=== PATIENT | female | born 1940 | race Caucasian/White ===

== ENCOUNTER 2016-08-09 08:24 | Emergency (ER) | payer MEDICARE ==
--- NOTE | 2016-08-09 09:03 | UC ---
Throat Pain/Nasal Maxx HPI - HPI Summary HPI Summary: [address] AND COUGH. ALSO HAS SHARP RIGHT SIDED EAR PAIN AND SHARP INTERMITTENT DICKSON PAIN. NO FEVER OR NAUSEA.. - History of Current Complaint Chief Complaint: UCGeneralIllness Stated Complaint: SORE THROAT EAR PAIN Time Seen by Provider: 08/09/16 08:52 Hx Obtained From: Patient Onset/Duration: Gradual Onset, Lasting Days, Still Present Severity: Moderate Pain Intensity: 8 Pain Scale Used: 0-10 Numeric Cough: Nonproductive - Allergies/Home Medications Allergies/Adverse Reactions: Allergies Allergy/AdvReac Type Severity Reaction Status Date / Time Amoxicillin [From Augmentin] Allergy Swelling Verified 08/09/16 08:38 Ampicillin Allergy Swelling Verified 08/09/16 08:37 Clavulanic Acid Allergy Swelling Verified 08/09/16 08:37 [From Augmentin] Denosumab [From Prolia] Allergy Swelling Verified 08/09/16 08:37 Lactose Intolerance (GI) Allergy Swelling Verified 08/09/16 08:37 Levofloxacin [From Levaquin] Allergy Swelling Verified 08/09/16 08:37 Loratadine [From Claritin-D] Allergy Swelling Verified 08/09/16 08:37 Metoclopramide [From Reglan] Allergy Swelling Verified 08/09/16 08:37 Mouse Protein [From Prolia] Allergy Swelling Verified 08/09/16 08:37 Pseudoephedrine Allergy Swelling Verified 08/09/16 08:37 [From Claritin-D] Rosuvastatin [From Crestor] Allergy Swelling Verified 08/09/16 08:37 PMH/Surg Hx/FS Hx/Imm Hx Cardiovascular History: Hypertension - Surgical History Surgical History: Yes Surgery Procedure, Year, and Place: stomach surgery - Family History Known Family History: Positive: Hypertension, Diabetes - Social History Alcohol Use: None Substance Use Type: None Smoking Status (MU): Never Smoked Tobacco Review of Systems Constitutional: Negative ENT: Sore Throat, Ear Ache Respiratory: Cough Cardiovascular: Negative Gastrointestinal: Negative Neurological: Headache All Other Systems Reviewed And Are Negative: Yes Physical Exam Triage Information Reviewed: Yes Appearance: Well-Appearing, No Pain Distress, Well-Nourished Vital Signs: Initial Vital Signs Temp 98.8 F 08/09/16 08:33 Pulse 75 08/09/16 08:33 Resp 18 08/09/16 08:33 BP 130/56 08/09/16 08:33 Pulse Ox 100 08/09/16 08:33 Vital Signs Reviewed: Yes Eyes: Positive: Conjunctiva Clear ENT: Positive: Hearing grossly normal, Pharynx normal, TMs normal. Negative: Muffled/hoarse voice Neck: Positive: Supple, Nontender, No Lymphadenopathy Respiratory Exam: Normal Cardiovascular Exam: Normal Abdomen Description: Positive: Soft Musculoskeletal: Positive: No Edema Neurological: Positive: Alert Psychological: Positive: Age Appropriate Behavior Skin: Negative: rashes Throat Pain/Nasal Course/Dx - Differential Dx/Diagnosis Provider Diagnoses: ACUTE URI/PHARYNGITIS Discharge - Discharge Plan Condition: Stable Disposition: HOME Prescriptions: Amoxicillin CAP* [Amoxicillin 500 MG CAP*] 1,000 mg PO Q12H #28 cap Patient Education Materials: Upper Respiratory Infection (ED) Referrals: Vandana Morin MD [Primary Care Provider] - If Needed Additional Instructions: ACUTE UPPER RESPIRATORY INFECTION The common cold is a benign self-limited syndrome representing a group of diseases caused by members of several families of viruses. It is the most frequent acute illness in the [place] and throughout the industrialized world. The term "common cold" refers to a mild upper respiratory viral infection involving, to variable degrees, nasal congestion and discharge ( rhinorrhea), sneezing, sore throat, cough, low-grade fever, headache, and malaise. Symptomatic therapy remains the mainstay of common cold treatment. In the absence of convincing evidence of a secondary bacterial infection, antibiotics are not effective in the treatment of the common cold and should not be prescribed. Be advised that the usual course and duration of illness is up to one and a half weeks for patients with a cold, but can last slightly longer; symptoms usually persist longer in smokers.
== END 2016-08-09 09:09 | disposition home or self-care (01) ==
LOC: UCEAST 08:24
DX: J06.9 Acute upper respiratory infection, unspecified (principal); J02.9 Acute pharyngitis, unspecified; I10 Essential (primary) hypertension
CPT/HCPCS: 99212; G0463

== ENCOUNTER 2017-04-24 17:27 | Emergency (ER) | payer MEDICARE ==
[2017-04-24] MEDS ORDERED: NS 0.9% 1000 ML* 1,000 ML IV ONE (19:15)
[2017-04-24] MEDS ORDERED: Dexamethasone IV* 4 MG/ML 1 ML (4 MG) IV SLOW PU ONE (19:15)
[2017-04-24] MEDS ORDERED: Famotidine TAB* 20 MG PO ONE (19:15)
[2017-04-24 19:46] LABS: ABS Basophils 0.1 10^3/ul (0-0.2); ABS Eosinophils 0.1 10^3/ul (0-0.6); ABS Lymphocytes 2.3 10^3/ul (1.0-4.8); ABS Monocytes 0.7 10^3/ul (0-0.8); ABS Neutrophils 3.6 10^3/ul (1.5-7.7); ABS Nucleated RBC 0 10^3/ul; Eosinophil % 1.9 % (0-6); Hematocrit 41 % (35-47); Hemoglobin 13.9 g/dl (12.0-16.0); Lymphocyte % 33.3 % (25-47); Mean Corpuscular HGB Conc 34 g/dl (31-36); Mean Corpuscular Hemoglobin 31 pg (27-31); Mean Corpuscular Volume 92 fL (80-97); Mean Platelet Volume 9 um3 (7.4-10.4); Nucleated Red Blood Cells % 0.1; Platelet Count 284 10^3/ul (150-450); Red Blood Count 4.46 10^6/ul (4.0-5.4); Red Cell Distribution Width 14 % (10.5-15); White Blood Count 6.8 10^3/ul (3.5-10.8)
[2017-04-24 20:17] LABS: Urine Appearance Clear; Urine Blood Negative (Negative); Urine Color Straw; Urine Ketones Negative (Negative); Urine Protein Negative (Negative); Urine Specific Gravity 1.003 (1.010-1.030); Urine Urobilinogen Negative (Negative)
--- NOTE | 2017-04-24 20:22 | ED ---
Rashmi Donohue Thomas, scribed for Anita Thomas MD on 04/24/17 at 1859 . Allergic Reaction/Systemic - HPI Summary HPI Summary: The patient is a 76 year old female who was given one dose of Tamiflu in Dr. Garcia office today at 12:00. After taking the medication, she has right chest tightness, right sided-facial swelling, and lip swelling. She notes some throat swelling as well. The patient rates her pain 8/10. The patient denies chest pain, wheezing or SOB. Pt did not take any meds prior to coming to the ED other than the Tamiflu. - History of Current Complaint Chief Complaint: EDAllergicReaction Hx Obtained From: Patient, Family/Immigration Case Manager - Onset/Duration: Sudden Onset, Started hours ago - patient given Tamiflu today at 12:00, Still Present Timing: Constant Severity Initially: Moderate Severity Currently: Moderate Pain Intensity: 8 Pain Scale Used: 0-10 Numeric Location: Discrete @ - face, neck, throat Character: Swelling Aggravating Factor(s): Other - Tamiflu Alleviating Factor(s): Nothing Associated Signs And Symptoms: Positive: Throat Tightening, Other: - Facial swelling, chest tightness, right-sided facial swelling, lip swelling - Related Hx Possible Reaction To: Medications - Tamiflu - Allergies/Home Medications Allergies/Adverse Reactions: Allergies Allergy/AdvReac Type Severity Reaction Status Date / Time MS Amoxicillin Allergy Swelling Verified 08/09/16 08:38 [From Augmentin] MS Ampicillin [Ampicillin] Allergy Swelling Verified 08/09/16 08:37 MS Clavulanic Acid Allergy Swelling Verified 08/09/16 08:37 [From Augmentin] MS Denosumab [From Prolia] Allergy Swelling Verified 08/09/16 08:37 MS Lactose Intolerance (GI) Allergy Swelling Verified 08/09/16 08:37 [Lactose Intolerance (GI)] MS Levofloxacin Allergy Swelling Verified 08/09/16 08:37 [From Levaquin] MS Loratadine Allergy Swelling Verified 08/09/16 08:37 [From Claritin-D] MS Metoclopramide Allergy Swelling Verified 08/09/16 08:37 [From Reglan] MS Mouse Protein Allergy Swelling Verified 08/09/16 08:37 [From Prolia] MS Pseudoephedrine Allergy Swelling Verified 08/09/16 08:37 [From Claritin-D] MS Rosuvastatin Allergy Swelling Verified 08/09/16 08:37 [From Crestor] PMH/Surg Hx/FS Hx/Imm Hx Previously Healthy: No Endocrine/Hematology History: Denies: Hx Diabetes Cardiovascular History: Reports: Hx Hypertension Denies: Hx Hypercholesterolemia, Hx Myocardial Infarction GI History: Reports: Hx Ulcer, Other GI Disorders - Hx gastroparesis Neurological History: Reports: Hx Seizures - Surgical History Surgery Procedure, Year, and Place: stomach surgery Infectious Disease History: No Infectious Disease History: Denies: Traveled Outside the [place] in Last 30 Days - Family History Known Family History: Positive: Hypertension, Diabetes - Social History Lives: With Family Alcohol Use: None Hx Substance Use: No Substance Use Type: Reports: None Hx Tobacco Use: No Smoking Status (MU): Never Smoked Tobacco Review of Systems Negative: Fever ENT: Other - hoarse voice (not new since Tamiflu) Positive: Other - Right-sided facial swelling, lip swelling, throat swelling Positive: Other - Chest tightness. Negative: Chest Pain Negative: Shortness Of Breath Negative: Abdominal Pain, Nausea Negative: Rash, Other - hives Neurological: Negative Psychological: Normal All Other Systems Reviewed And Are Negative: Yes Physical Exam - Summary Physical Exam Summary: Appearance: well-appearing, no pain distress, elderly, no resp distress. Speaks full sentences Skin: Warm, color reflects adequate perfusion. There are no rashes noted. Head: There is redness of the face. Eyes: Conjunctiva clear ENT: There is redness of the face. There is swelling of the lower lip. There is loss of lip creases. She has a hoarse voice (not new). Airway is widely patent , no redness or swelling of the post pharynx Neck: Supple, no nodes, no JVD. Respiratory: Decreased breath sounds. No wheezing. Cardio: RRR, No murmur, pulses normal, brisk capillary refill Abdomen: soft, nontender Bowel sounds: present Musculoskeletal: Strength Intact/ ROM intact. No calf tenderness. No edema. Neuro: Alert, muscle tone normal, facial symmetry, speech normal, sensory/motor intact Psychological: Normal Triage Information Reviewed: Yes Vital Signs On Initial Exam: Initial Vitals Temp Pulse Resp BP Pulse Ox 98.2 F 79 20 145/66 100 04/24/17 17:37 04/24/17 17:37 04/24/17 17:37 04/24/17 17:37 04/24/17 17:37 Vital Signs Reviewed: Yes Diagnostics - Vital Signs Vital Signs Temp Pulse Resp BP Pulse Ox 04/24/17 18:11 72 13 97 04/24/17 17:37 98.2 F 79 20 145/66 100 - Laboratory Lab Results: Lab Results 04/24/17 Range/Units 19:34 WBC 6.8 (3.5-10.8) 10^3/ul RBC 4.46 (4.0-5.4) 10^6/ul Hgb 13.9 (12.0-16.0) g/dl Hct 41 (35-47) % MCV 92 (80-97) fL MCH 31 (27-31) pg MCHC 34 (31-36) g/dl RDW 14 (10.5-15) % Plt Count 284 (150-450) 10^3/ul MPV 9 (7.4-10.4) um3 Neut % (Auto) 53.2 (38-83) % Lymph % (Auto) 33.3 (25-47) % [place] % (Auto) 10.8 H (1-9) % Eos % (Auto) 1.9 (0-6) % Baso % (Auto) 0.8 (0-2) % Absolute Neuts (auto) 3.6 (1.5-7.7) 10^3/ul Absolute Lymphs (auto) 2.3 (1.0-4.8) 10^3/ul Absolute Monos (auto) 0.7 (0-0.8) 10^3/ul Absolute Eos (auto) 0.1 (0-0.6) 10^3/ul Absolute Basos (auto) 0.1 (0-0.2) 10^3/ul Absolute Nucleated RBC 0 10^3/ul Nucleated RBC % 0.1 Result Diagrams: 04/24/17 19:34 04/24/17 19:34 Lab Statement: Any lab studies that have been ordered have been reviewed, and results considered in the medical decision making process. Allergic Reaction Course/Dx - Course Course Of Treatment: Medications reviewed this visit. Blood presure noted. Of note, pt has multiple allergies to medications, but all are associated with swelling, none with anaphylaxis. Care will be turned over to Dr. Vance at change of shift and medications for allergic reaction will be administered. - Diagnoses Differential Diagnosis/HQI/PQRI: Positive: Anaphylaxis, Bronchospasm, Local Allergic Reaction, Other - influenza Provider Diagnoses: Acute allergic reaction Discharge - Discharge Plan Condition: Stable Disposition: OTHER Discharge Disposition Comment: care to Dr. Vance at change of shift 04/24/17, 1900. Referrals: Vandana Morin MD [Primary Care Provider] - The documentation as recorded by the Rashmi noel Thomas accurately reflects the service I personally performed and the decisions made by , Anita Thomas MD.
[2017-04-24 21:27] VITALS: BP 136/71
--- NOTE | 2017-04-25 06:00 | ED ---
I, Siria Hein, scribed for Kvng Vance MD on 04/24/17 at 1918 . Progress - Progress Note Progress Note: This patient was s/o by Dr. Thomas, pending dispo, awaiting labs and evaluation. Patient is a 76 y/o F presenting to [facility] accompanied by with a chief complaint of tongue swelling s/p taking a dose of Tamiflu at 1200 today. states patient's bottom lip is swollen. Patient notes she's been feeling constant flu-like symptoms (malaise, cough, rhinorrhea, and sore throat) for the past 3 days. She also notes dysuria, but denies fever. When she visited PCP today for flu evaluation, patient was tested for flu but states she did not receive results yet. PMHx HTN, gastroparesis, seizure, and brain tumor. Medications include phenobarbital (past 20 years). Physical Exam: Appearance: Well appearing, no pain distress Skin: warm, dry, reflects adequate perfusion Head/face: subjective lower lip swelling, no objective findings of swelling. Eyes: EOMI, STEFANIA ENT: normal, upper pharynx widely patent, no erythema, a little bit of clear mucous. Neck: supple, non-tender Respiratory: CTA, breath sounds present Cardiovascular: RRR, pulses symmetrical Abdomen: non-tender, soft Bowel: present Musculoskeletal: normal, strength/ROM intact Neuro: normal, sensory motor intact, A&Ox3 Re-Evaluation - Re-Evaluation First Eval Re-Evaluation Time: 19:27 Comment: Patient states she just wants to feel better. She refuses CXR. Second Eval Re-Evaluation Time: 20:45 Comment: Pt states she feels better after IV fluids. Course/Dx - Course Course Of Treatment: pt with no discernable lip or tongue swelling. Possible allergy, but sx now gone. Hydrated here and feeling better. D/C to f/u PMD. STOP Tamiflu. - Diagnoses Provider Diagnoses: Flu-like symptoms, Medication side effect The documentation as recorded by the roseibMelvina henley Nilda accurately reflects the service I personally performed and the decisions made by me, Kvng Vance MD.
== END 2017-04-24 21:25 | disposition home or self-care (01) ==
LOC: ED 17:27
DX: J11.1 Influenza due to unidentified influenza virus with other respiratory manifestations (principal); T50.905A Adverse effect of unspecified drugs, medicaments and biological substances, initial encounter; X58.XXXA Exposure to other specified factors, initial encounter; Y92.9 Unspecified place or not applicable; I10 Essential (primary) hypertension; T78.40XA Allergy, unspecified, initial encounter
CPT/HCPCS: 36415; 80048; 80184; 81003; 81015; 85025; 87086; 96360; 96374; 99283; A9270-GY; J1100